=== PATIENT | male | born 1950 | race Caucasian/White ===

== ENCOUNTER 2018-09-01 13:32 | Emergency (ER) | payer OTHER ==
[2018-09-01] MEDS ORDERED: NS 1,000 ML IV ONE (14:00)
[2018-09-01] MEDS ORDERED: methylPREDNISolone SOD SUCC 125 MG/2 ML VIAL IVP ONE (14:00)
[2018-09-01] MEDS ORDERED: IPRATROPIUM/ALBUTEROL 3 ML DEYVIAL IH ONE (14:00)
--- NOTE | 2018-09-01 14:00 | EDPHY ---
H & P Stated Complaint: asthma Time Seen by Provider: 09/01/18 13:53 HPI/ROS: HPI: This is a 67-year-old male who presents with Chief Complaint: Difficulty breathing, flu-like symptoms Location: Chest Quality: Cough, difficulty breathing Duration: 24-48 hours Signs and Symptoms: no shortness of breath at rest, no shortness of breath on exertion, + loose cough, no chest pain, no palpitations, no lower extremity edema, + wheezing, no orthopnea, no paroxysmal nocturnal dyspnea, no fever, no injury/trauma, no hemoptysis, no carpal pedal spasms, + subjective fevers Timing: Acute, constant Severity: Moderate Context: Patient reports that he has a history of asthma, presents with 24-48 hour history of fatigue, subjective fevers, chills, loose wet cough and difficulty breathing. Patient reports he did not receive influenza vaccine this year and believes he may have the flu. Patient reports that he uses albuterol inhaler and Flovent but this is not improving his symptoms. Patient never took a temperature. Does complain of body aches and fatigue. Eating and drinking normally but admits to a decreased appetite. Modifying Factors: See above Comment: ROS: A comprehensive 10 system review of systems is otherwise negative aside from elements mentioned in the history of present illness. 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 CONSTITUTIONAL: Nontoxic-well appearing elderly white male, able to speak in complete sentences, awake and alert, no obvious distress HEENT: Atraumatic and normocephalic, PERRL, EOMI. Nares patent; no rhinorrhea; no nasal mucosal edema. Tympanic membranes clear. Oropharynx clear, no exudate and moist pink mucosa. Airway patent. No lymphadenopathy. No meningismus. Cardiovascular: Normal S1/S2, regular rate, regular rhythm, without murmur rub or gallop. PULMONARY/CHEST: Symmetrical and nontender. Faint Expiratory wheezing throughout. Good air movement. No accessory muscle usage. Mild tachypnea noted. ABDOMEN: Soft, nondistended, nontender, no rebound, no guarding, no peritoneal signs, no masses or organomegaly. No CVAT. EXTREMITIES: 2/2 pulses, strength 5/5, no deformities, no clubbing, no cyanosis or edema. NEUROLOGICAL: no focal neuro deficits. GCS 15. SKIN: Warm and dry, no erythema. no rash. Good capillary refill. Source: Patient Exam Limitations: No limitations - Personal History Current Tetanus Diphtheria and Acellular Pertussis (TDAP): Yes - Medical/Surgical History Hx Asthma: Yes Hx Chronic Respiratory Disease: No Hx Diabetes: No Hx Cardiac Disease: No Hx Renal Disease: No Hx Cirrhosis: No Hx Alcoholism: No Hx HIV/AIDS: No Hx Splenectomy or Spleen Trauma: No Other PMH: asthma - Social History Smoking Status: Never smoked Constitutional: Initial Vital Signs Temperature (C) 37.6 C 09/01/18 13:34 Heart Rate 98 09/01/18 13:34 Respiratory Rate 24 H 09/01/18 13:34 Blood Pressure 130/92 H 09/01/18 13:34 O2 Sat (%) 94 09/01/18 13:34 O2 Delivery Mode Room Air Allergies/Adverse Reactions: No Known Allergies Allergy (Verified 11/20/11 08:02) Home Medications: Medication Instructions Recorded Ed Rn Completed 11/20/11 Cialis 09/01/18 Flovent Diskus 09/01/18 Oseltamivir Phosphate [Tamiflu 75 75 mg PO BID 5 Days cap 09/01/18 mg (*)] levOFLOXACIN [levAQUIN (*)] 750 mg PO DAILY #5 tab 09/01/18 Medical Decision Making - Diagnostics Imaging Results: Imaging Impressions Chest X-Ray 09/01/18 14:01 Impression: COPD/airways disease with a possible minimal left basilar infiltrate. ED Course/Re-evaluation: Vital signs reviewed and show no hypoxia but mild tachypnea IV access, laboratory studies, chest x-ray, respiratory pathogen panel, medications ordered Patient given 1 L normal saline, IV Solu-Medrol 125 and DuoNeb 1454: Labs reviewed. No signs of leukocytosis/anemia/platelet dysfunction/SCARLETT/ electrolyte imbalance. 1505: Chest x-ray via PAC shows: COPD/airways disease with a possible minimal left basilar infiltrate. 1514: repeat vitals show resolution of tachypnea. 1600: Notified by tech that influenza A positive. Based on CDC guidelines, treat with Tamiflu Patient meets outpatient treatment criteria and has politely declined admission to the hospital. He will be given a prescription for Levaquin due to early community-acquired pneumonia and history of lung disease combined with influenza a This patient was seen under the supervision of my secondary supervising physician. I evaluated care for this patient with a 10. Discussed this patient with Dr. Biggs. Differential Diagnosis: Shortness of breath including but not limited to pulmonary infectious process, COPD, asthma, pulmonary embolus and congestive heart failure. - Data Points Laboratory Results: Laboratory Results 09/01/18 14:05 09/01/18 14:05 09/01/18 09/01/18 14:05 14:05 WBC 5.06 10^3/uL 10^3/uL (3.80-9.50) RBC 4.75 10^6/uL 10^6/uL (4.40-6.38) Hgb 14.9 g/dL g/dL (13.7-17.5) Hct 43.0 % % (40.0-51.0) MCV 90.5 fL fL (81.5-99.8) MCH 31.4 pg pg (27.9-34.1) MCHC 34.7 g/dL g/dL (32.4-36.7) RDW 13.7 % % (11.5-15.2) Plt Count 179 10^3/uL 10^3/uL (150-400) MPV 10.4 fL fL (8.7-11.7) Neut % (Auto) 68.5 % % (39.3-74.2) Lymph % (Auto) 17.8 % % (15.0-45.0) [place] % (Auto) 12.1 % % (4.5-13.0) Eos % (Auto) 0.8 % % (0.6-7.6) Baso % (Auto) 0.6 % % (0.3-1.7) Nucleat RBC Rel Count 0.0 % % (0.0-0.2) Absolute Neuts (auto) 3.47 10^3/uL 10^3/uL (1.70-6.50) Absolute Lymphs (auto) 0.90 10^3/uL L 10^3/uL (1.00-3.00) Absolute Monos (auto) 0.61 10^3/uL 10^3/uL (0.30-0.80) Absolute Eos (auto) 0.04 10^3/uL 10^3/uL (0.03-0.40) Absolute Basos (auto) 0.03 10^3/uL 10^3/uL (0.02-0.10) Absolute Nucleated RBC 0.00 10^3/uL 10^3/uL (0-0.01) Immature Gran % 0.2 % % (0.0-1.1) Immature Gran # 0.01 10^3/uL 10^3/uL (0.00-0.10) Sodium 133 mEq/L L mEq/L (135-145) Potassium 3.7 mEq/L mEq/L (3.5-5.2) Chloride 103 mEq/L mEq/L (97-110) Carbon Dioxide 23 mEq/l mEq/l (22-31) Anion Gap 7 mEq/L mEq/L (6-14) BUN 18 mg/dL mg/dL (7-23) Creatinine 1.0 mg/dL mg/dL (0.7-1.3) Estimated GFR > 60 Glucose 102 mg/dL H mg/dL (70-100) Calcium 8.9 mg/dL mg/dL (8.5-10.4) Microbiology Results: MICROBIOLOGY 09/01/18 14:10 Nasal, Sinus - Swab Respiratory Panel (PCR) - Final Influenza Virus Type A H3 Medications Given: Discontinued Medications Albuterol/Ipratropium (Duoneb) 3 ml IH EDNOW ONE Stop: 09/01/18 14:01 Last Admin: 09/01/18 14:07 Dose: 3 ml Sodium Chloride (Ns) 1,000 mls @ 0 mls/hr IV ONCE ONE; Wide Open PRN Reason: Protocol Stop: 09/01/18 14:01 Last Admin: 09/01/18 14:09 Dose: 1,000 mls Methylprednisolone Sodium Succinate (Solu-Medrol) 125 mg IVP EDNOW ONE Stop: 09/01/18 14:01 Last Admin: 09/01/18 14:07 Dose: 125 mg Departure - Departure Disposition: Home, Routine, Self-Care Clinical Impression: Influenza A with pneumonia Condition: Good Instructions: Influenza (ED), Community Acquired Pneumonia (ED) Additional Instructions: Take antibiotic and Tamiflu as directed and do not skip a dose. Continue to use inhalers as prescribed for asthma. Rest as much as possible until you are feeling better. Consume a minimum of 8-10 glasses of water or electrolyte fluid replacement drinks that include Gatorade, Powerade, Pedialyte. Eat a bland diet for the next 48 hours and then slowly advance as tolerated. Return to the ER immediately if you experience fevers/chills, shortness of breath, abdominal pain, inability to tolerate oral intake, or any other symptoms that concern you. Referrals: PCP Not In,Dictionary [Medical Doctor] - As per Instructions Prescriptions: levOFLOXACIN [levAQUIN (*)] 750 mg PO DAILY #5 tab Oseltamivir Phosphate [Tamiflu 75 mg (*)] 75 mg PO BID 5 Days cap
[2018-09-01 14:37] LABS: PLATELET COUNT 179 10^3/uL (150-400)
[2018-09-01 15:12] VITALS: BP 142/90
[2018-09-01] MEDS ORDERED: OSELTAMIVIR PHOSPHATE 75 MG CAP PO ONE (16:03)
== END 2018-09-01 16:17 | disposition home or self-care (01) ==
DX: J10.1 Influenza due to other identified influenza virus with other respiratory manifestations (principal); J18.9 Pneumonia, unspecified organism; J45.909 Unspecified asthma, uncomplicated; E86.9 Volume depletion, unspecified
CPT/HCPCS: 96374; J2930